=== PATIENT | male | born 1955 | race Caucasian/White ===

== ENCOUNTER → 2020-07-01 13:02 | Outpatient (BNVA) | payer OTHER, SELFPAY | PROVIDERS: Visit Provider Physician Assistant Medical | DX: M54.2 Cervicalgia (principal) | CPT/HCPCS: 72050; 99203 ==

== ENCOUNTER → 2020-07-07 14:33 | Outpatient (BNVA) | payer OTHER, SELFPAY | PROVIDERS: Visit Provider Physician Assistant Medical | DX: Z13.89 Encounter for screening for other disorder (principal) | CPT/HCPCS: 99213 ==

== ENCOUNTER → 2020-07-16 14:12 | Outpatient (BNVA) | payer OTHER, SELFPAY | PROVIDERS: Visit Provider Physician Assistant Medical | DX: S46.811D Strain of other muscles, fascia and tendons at shoulder and upper arm level, right arm, subsequent encounter (principal); S16.1XXD Strain of muscle, fascia and tendon at neck level, subsequent encounter; X50.3XXD Overexertion from repetitive movements, subsequent encounter | CPT/HCPCS: 99213 ==

== ENCOUNTER → 2020-07-30 13:18 | Outpatient (BNVA) | payer OTHER, SELFPAY | PROVIDERS: Visit Provider Physician Assistant Medical | DX: S16.1XXD Strain of muscle, fascia and tendon at neck level, subsequent encounter (principal); S46.811D Strain of other muscles, fascia and tendons at shoulder and upper arm level, right arm, subsequent encounter; X58.XXXD Exposure to other specified factors, subsequent encounter | CPT/HCPCS: 99213 ==

== ENCOUNTER → 2020-08-13 13:24 | Outpatient (BNVA) | payer OTHER, SELFPAY | PROVIDERS: Visit Provider Physician Assistant Medical | DX: S46.811D Strain of other muscles, fascia and tendons at shoulder and upper arm level, right arm, subsequent encounter (principal); X58.XXXD Exposure to other specified factors, subsequent encounter | CPT/HCPCS: 99213 ==

== ENCOUNTER → 2020-09-10 09:57 | Outpatient (BNVA) | payer OTHER, SELFPAY | PROVIDERS: Visit Provider Physician Assistant Medical | DX: S46.811D Strain of other muscles, fascia and tendons at shoulder and upper arm level, right arm, subsequent encounter (principal); X58.XXXD Exposure to other specified factors, subsequent encounter | CPT/HCPCS: 99213 ==

== ENCOUNTER → 2020-10-26 09:28 | Outpatient (BNVA) | payer OTHER, SELFPAY | PROVIDERS: Visit Provider Physician Assistant | DX: S16.1XXD Strain of muscle, fascia and tendon at neck level, subsequent encounter (principal); M50.30 Other cervical disc degeneration, unspecified cervical region; X58.XXXD Exposure to other specified factors, subsequent encounter | CPT/HCPCS: 99213 ==

== ENCOUNTER → 2021-05-11 09:05 | Outpatient (BNVA) | payer SELFPAY | PROVIDERS: Visit Provider Physician Assistant | DX: Z02.79 Encounter for issue of other medical certificate (principal) ==